=== PATIENT | female | born 1960 | race Caucasian/White ===

== ENCOUNTER 2022-09-08 12:42 | Emergency (ER) | payer BC, SELFPAY ==
--- NOTE | ~2022-09-08 | XR_ITS ---
EXAMINATION: XR hand LT min 3V DATE: 09/08/2022 13:03 INDICATION: Left hand pain. TECHNIQUE: 4 views of left hand were obtained. COMPARISON: None. FINDINGS: Bone alignment is normal. No fracture. There is mild osteoarthritis of first interphalangea l joint and first carpometacarpal joint. There are dystrophic calcifications palmar and radial to tri scaphe joint. IMPRESSION: 1. Mild polyarticular osteoarthritis. Reviewed, dictated and finalized at location A. D INCOME [employer] MA[employer]GER
[2022-09-08 13:20] VITALS: BP 146/75; PULSE 84; RESP 16; TEMP 37; O2SAT 97
--- NOTE | 2022-09-08 13:34 | ED.UPPEXIN ---
HPI - Extremity Injury (Upper) General Chief Complaint: Extremity Injury, Upper Stated Complaint: left hand injury Time Seen by Provider: 09/08/22 13:19 History of Present Illness HPI narrative: Patient is a 61-year-old female presenting with left wrist pain. 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 The next morning she woke up and she noticed some pain in her left wrist. Today she woke up and noticed that her left wrist looked swollen compared to her right wrist. She states that extending and flexing worsens the pain. She denies any trauma. She denies erythema or difficulty moving the joint. No fevers or chills. No numbness or weakness. No further complaints. Related Data Allergies Allergy/AdvReac Type Severity Reaction Status Date / Time Penicillins Allergy Intermediate Swelling Verified 02/17/19 08:46 Sulfa (Sulfonamide Allergy Intermediate Swelling Verified 02/17/19 08:46 Antibiotics) Review of Systems Review of Systems: All systems reviewed & are unremarkable except as noted in HPI and below Exam Narrative: GENERAL: Well-appearing, well-nourished, and in no acute distress. HEAD: Normocephalic, atraumatic. EYES: PERRLA and EOMI. ENT: Nares clear, no rhinorrhea or epistaxis. Mucous membranes moist. NECK: Supple. CHEST: Clear to auscultation. No respiratory distress. HEART: Regular rate and rhythm. No murmur heard. Normal peripheral pulses. ABDOMEN: Soft, nontender, nondistended, normal active bowel sounds. EXTREMITIES: Normal range of motion. edema involving lateral aspect of left wrist without overlying erythema or associated tenderness, 2+ radial pulses, brisk cap refill, research and evaluation analyst strength intact SKIN: Warm, dry, no rash. NEURO: No focal deficits. Alert and oriented x3. PSYCH: Normal mood and affect. Course Vital Signs Vital signs: Vital Signs Temperature 98.6 F 09/08/22 13:20 Pulse Rate 84 09/08/22 13:20 Respiratory Rate 16 09/08/22 13:20 Blood Pressure 146/75 H 09/08/22 13:20 Pulse Oximetry 97 09/08/22 13:20 Oxygen Delivery Room Air 09/08/22 13:20 Temperature 98.6 F 09/08/22 13:20 Pulse Rate 84 09/08/22 13:20 Respiratory Rate 16 09/08/22 14:39 Blood Pressure 146/75 H 09/08/22 13:20 Pulse Oximetry 97 09/08/22 13:20 Oxygen Delivery Room Air 09/08/22 13:20 MDM - Extremity Injury (Upper) MDM Narrative Medical decision making narrative: Patient is a 61-year-old female presenting with left wrist pain and mild swelling. Vitals within normal limits. Patient is well-appearing and in no acute distress. Exam is remarkable for the above. X-ray reveals polyarticular arthritis. Suspect that this is the cause of her pain. Advised that she use ibuprofen and Tylenol for pain control. She states that she has an appointment with orthopedics in a couple of weeks. Appropriate return precautions were given. Patient voiced understanding and is agreeable with plan. Discharged in stable condition. Critical Care Time Critical Care Time Critical Care Time: No Discharge Plan Discharge Clinical Impression: Left wrist pain, Osteoarthritis Patient Disposition: Home, Self-Care Condition: Stable Instructions: Antibiotic Form, Osteoarthritis (ED) Additional Instructions: Please follow-up with orthopedics as discussed. You may use up to 800 mg of ibuprofen 3 times a day for pain control. You may also supplement with Tylenol. If your symptoms suddenly worsen, you develop redness or fevers, or other concerning symptoms arise, please return to the ER. Follow-up/Referrals: PHYSICIAN NOT ON STAFF,NONSTAFF [Primary Care Provider] -
[2022-09-08 14:39] VITALS: RESP 16
== END 2022-09-08 14:39 | disposition home or self-care (01) ==
LOC: ANHED 14:37
PROVIDERS: Emergency Provider Emergency Medicine
DX: M19.032 Primary osteoarthritis, left wrist (principal)
CPT/HCPCS: 73130; 99283

== ENCOUNTER 2023-12-16 14:52 | Emergency (ER) | payer BC, SELFPAY ==
--- NOTE | ~2023-12-16 | CT_ITS ---
EXAMINATION: CT abdomen pelvis wo con DATE: 12/16/2023 15:46 INDICATION: R flank, RLQ pain, hx stones TECHNIQUE: Computed tomography (CT) of the abdomen and pelvis was performed without intravenous contr ast. Automated exposure control and iterative reconstruction technique were employed. The dose-length product was 615.71 mGy-cm. COMPARISON: 02/17/2019. FINDINGS: Lower thorax: Unremarkable Liver: Normal. Biliary/Gallbladder: Gallbladder is normal. No bile duct dilation. Pancreas: No mass or duct dilation. Spleen: Normal. Adrenals:No mass. Kidneys: Normal left kidney. Moderate right perinephric stranding. Severe pelviectasis and caliectasi s on the right. Moderate proximal ureterectasis. 5 x 9 mm calcification in the mid right ureter at th e level of the crossover with the iliac vessels. GI tract: Small hiatal hernia. No small or large bowel dilation. Status post appendectomy. Mesentery/Peritoneum: No ascites, mass, or free air. Retroperitoneum: No mass. Atherosclerotic abdominal aortic and/or arterial calcifications. Pelvis: Pelvic organs are within normal limits. Soft Tissues: Soft tissues and body wall unremarkable. Bones: No acute osseous finding. Moderate lumbar scoliosis. Multilevel severe degenerative disc dise ase. IMPRESSION: 5 x 9 mm distal ureteral stone causing moderate-severe obstructive uropathy. Reviewed, dictated and finalized at location K.
--- NOTE | ~2023-12-16 | XR_ITS ---
EXAM: XR abdomen/kub 1V DATE: 12/16/2023 20:20 HISTORY: URETEROLITHIASIS . COMPARISON: CT abdomen pelvis, same date. FINDINGS: Clear lung bases. Normal bowel gas pattern. No organomegaly. No abnormal abdominal calcifi cation. Regional bones and soft tissues normal for age. IMPRESSION: Known distal right ureteral calcification is not confidently visualized. Reviewed, dictated and finalized at location K. IMPRESSION: Known distal right ureteral calcification is not confidently visual ized.
[2023-12-16 15:13] VITALS: BP 137/76; PULSE 88; RESP 16; TEMP 37.6; O2SAT 100
--- NOTE | 2023-12-16 15:20 | ED.FEMALEGU ---
HPI - Female Genitourinary General Chief complaint: Urogenital-Female <NICA Machado Last Filed: 12/16/23 15:29> Stated complaint: right flank pain <NICA Machado Last Filed: 12/16/23 15:29> Time Seen by Provider: 12/16/23 15:21 <NICA Machado Last Filed: 12/16/23 15:29> Focused HPI: Patient is a 63 y/o female who presents to the ED with c/o R flank and abdominal pain. Patient has Hx of kidney stones, states it has been 10 years since her last stone up until recently. Thinks she has passed 3 in the past 3 weeks. Pain became much worse today which prompted her to come to the ED. C/o pain to R flank and RLQ. She took Advil this morning without improvement. Reports nausea with intermittent vomiting, subjective fevers, chills, urinary frequency, small void urines. Denies dysuria, hematuria. GENERAL: Mildly ill and uncomfortable appearing, actively vomiting in triage. HEAD: Normocephalic, atraumatic. CHEST: Clear to auscultation. ?No respiratory distress. HEART: Regular rate and rhythm.? ABD: TTP throughout R lower pelvic region, R CVA region. Normoactive BS. NEURO: ?Alert and oriented x3. Patient screened in triage and initial orders placed.? ?Additional care and disposition to be based upon?diagnostic testing and treatment. <NICA Machado Last Filed: 12/16/23 15:29> Source: patient <NICA Machado Last Filed: 12/16/23 15:29> Mode of arrival: ambulatory <NICA Machado Last Filed: 12/16/23 15:29> Limitations: no limitations <NICA Machado Last Filed: 12/16/23 15:29> Related Data Allergies/Adverse reactions: Allergies Allergy/AdvReac Type Severity Reaction Status Date / Time Penicillins Allergy Intermediate Swelling Verified 12/16/23 20:11 Sulfa (Sulfonamide Allergy Intermediate Swelling Verified 12/16/23 20:11 Antibiotics) <Lilian Sethi PA-C - Last Filed: 12/16/23 15:29> Review of Systems Review of Systems: CONSTITUTIONAL: Denies fever GASTROINTESTINAL: Reports abdominal pain, nausea, vomiting. Denies diarrhea. GENITOURINARY: Denies dysuria or hematuria. <Angela Verdugo PA-C - Last Filed: 12/16/23 21:06> All systems reviewed & are unremarkable except as noted in HPI and below <Angela Verdugo PA-C - Last Filed: 12/16/23 21:06> PMFSH Past Medical History Medical History: Medical History (Updated 12/16/23 @ 20:53 by Angela Verdugo PA-C) History of hyperlipidemia <Lilian Sethi PA-C - Last Filed: 12/16/23 15:29> Social History Social History: Social History (Updated 12/16/23 @ 18:35 by Angela Verdugo PA-C) Smoking status: Never smoker <Lliian Sethi PA-C - Last Filed: 12/16/23 15:29> Exam Narrative: GENERAL: Well-appearing, well-nourished, and in no acute distress. HEAD: Normocephalic, atraumatic. EYES: EOMI. CHEST: Clear to auscultation. No respiratory distress. No wheezes rales or rhonchi HEART: Regular rate and rhythm. No murmur heard. Normal peripheral pulses. ABDOMEN: Soft, nondistended, normal active bowel sounds. Mild tenderness to palpation in the right lower quadrant, without guarding EXTREMITIES: Normal range of motion. No edema. SKIN: Warm, dry, no rash. NEURO: No focal deficits. Alert and oriented x3. PSYCH: Normal mood and affect <Angela Verdugo PA-C - Last Filed: 12/16/23 21:06> Course Course Emergency Course: Patient updated on her workup. Would prefer to follow up outpatient <Angela Verdugo PA-C - Last Filed: 12/16/23 21:06> Consultations Consultation #1: Spoke with Dr. Linda about patient and workup. Patient will be started on oral antibiotics. She may follow up in clinic as is her preference. He is okay with a dose of Toradol <Angela Verdugo PA-C - Last Filed: 12/16/23 21:06> Date: 12/16/23 <Angela Verdugo PA-C - Last Filed: 12/16/23 21:06> Vital Signs Vi
[2023-12-16] MEDS: ACETAMINOPHEN 500 MG TABLET 1000 MG PO (15:32)
[2023-12-16] MEDS: ONDANSETRON INJ 4 MG/2 ML VIAL IV PUSH (15:32)
[2023-12-16 15:34] LABS: Basophils Percent Auto 0.2 % (0.2-1.2); Eosinophils Absolute Auto 0.1 K/mm3 (0-0.3); Eosinophils Percent Auto 0.5 % (0-4.4); Hematocrit 37.6 % (37.0-47.0); Hemoglobin 12.2 g/dL (12.0-15.0); Immature Granulocyte Absolute 0.05 K/mm3 (0.00-0.031); Immature Granulocyte Percent A 0.4 % (0-0.5); Lymphocytes Absolute Auto 0.88 K/mm3 (0.9-3.2); Lymphocytes Percent Auto 6.7 % (18.3-44.2); Mean Corpuscular HGB Conc 32.4 g/dl (32-36); Mean Corpuscular Volume 92.6 fl (80-100); Mean Platelet Volume 8.3 fl (7.4-10.4); Monocytes Absolute Auto 0.7 K/mm3 (0.1-0.6); Monocytes Percent Auto 5.6 % (2.6-8.5); Neutrophils Absolute Auto 11.4 K/mm3 (1.3-6.7); Neutrophils Percent Auto 86.6 % (45.5-73.1); Platelet Count Result 352 k/mm3 (150-375); Red Blood Count 4.06 M/mm3 (4.2-5.4); Red Cell Distribution Width 12.6 % (11.5-14.5); White Blood Count 13.2 K/mm3 (4.5-10.0)
[2023-12-16 15:46] LABS: Alanine Aminotransferase 22 U/L (6-35); Albumin Level 4.5 g/dL (3.5-5.1); Alkaline Phosphatase 96 U/L (38-126); Anion Gap 8 mmol/L (4-12); Aspartate Amino Transferase 29 U/L (14-36); Bilirubin,Total 0.7 mg/dL (0.2-1.3); Blood Urea Nitrogen 20 mg/dL (7-17); Calcium 9.5 mg/dL (8.4-10.2); Carbon Dioxide 23 mmol/L (22-30); Chloride 104 mmol/L (98-107); Estimated CRCL calculation 47 ml/min; Estimated Glomerular Filt Rate 50; Glucose 113 mg/dL (65-110); Lipase 43 U/L (23-300); Potassium 4.6 mmol/L (3.4-5.0); Sodium 135 mmol/L (137-145)
[2023-12-16] MEDS: SODIUM CHLORIDE 0.9% IV 1,000 ML 999 ML IV CONT (18:27)
[2023-12-16 18:47] LABS: Appearance Urine Turbid (Clear); Bacteria Urine Rare /hpf; Bilirubin Urine Negative (Negative); Blood Urine 2+ (Negative); Color Urine Yellow (Yellow); Glucose Urine UA Negative (Negative); Ketones Urine Trace mg/dL (Negative); Leukocyte Esterase Ur 3+ LEU/UL (Negative); Nitrate Urine Negative (Negative); Protein Urine 2+ mg/dL (Negative); Specific Grav Ur 1.022 (1.001-1.035); Squamous Epithelial Cell Urine None Seen /hpf (Few); Urobilinogen Urine 0.2 mg/dL (<2.0); WBC Urine >100 /hpf (0-3)
[2023-12-16 18:56] LABS: Add Urine Microscopic? YES
[2023-12-16 20:02] VITALS: BP 154/77; PULSE 93; RESP 16; O2SAT 98
[2023-12-16] MEDS: KETOROLAC 15 MG/ML VIAL (*BKC) IV PUSH (20:24)
[2023-12-16 20:33] LABS: Lactic Acid Reflex 1.4 mmol/L (0.7-2.0)
[2023-12-16 21:30] VITALS: BP 133/81; PULSE 93; RESP 20; O2SAT 97
== END 2023-12-16 21:30 | disposition home or self-care (01) ==
PROVIDERS: Physician Assistant; Emergency Provider Physician Assistant; PCP Family Medicine
DX: N13.9 Obstructive and reflux uropathy, unspecified (principal); N20.1 Calculus of ureter; R82.81 Pyuria; E78.5 Hyperlipidemia, unspecified; Z87.442 Personal history of urinary calculi
CPT/HCPCS: 36415; 74018; 74176; 80053; 81001; 83605; 83690; 85025; 87077; 87086; 87088; 87186; 96361; 96365; 96375; 99284; A9270; J0696; J1885; J2405; J7030

== ENCOUNTER 2023-12-19 14:50 | Observation (INO) | payer BC, SELFPAY ==
[2023-12-18] VITALS (13 sets, daily range): BP systolic 117–140; BP diastolic 51–71; PULSE 53–82; RESP 12–24; TEMP 36.2–37.5; O2SAT 93–100; BMI 31.4
--- NOTE | 2023-12-18 10:32 | PC.NURSE ---
Report to the Outpatient Waiting Room, entrance under the green pavilion located off [facility], at time _1200_ on date _[id number]_. Planned Procedure Time: _2pm_. Time changes happen often and if your time is changed the preop area will call you the afternoon before. - You and your visitor will be asked to self-screen and do not enter if you have any COVID symptoms. - A mask is optional within the hospital at this time. Patients may have clear liquids (water, carbonated beverages, clear teas, apple juice) until 3 hours prior to surgery with a maximum of 20 ounces. - No food from midnight until time of surgery Take the following medications with a SIP of water the morning of surgery: antibiotic and if needed pain pill. DO NOT STOP ANY OF YOUR OTHER PRESCRIPTION MEDICATIONS PRIOR TO SURGERY ?EXCEPT THE FOLLOWING Medications to discontinue per physician Date to take last dose Please no make-up, nail vietnamese, hairspray, perfume, deodorant, or body powder the day of surgery. No jewelry (including any body piercings) or valuables the day of surgery, leave them at home. Please take a shower or bath the night before, or the morning of, surgery with an antibacterial soap. Wear comfortable, loose fitting clothing. - Jewelry must be removed prior to entering the operating room. Rings and piercings that are not removed may be cut off. - The hospital will not accept responsibility for valuables. - Please leave all valuables, including medications, at home the day of surgery. If you are going home after surgery, a licensed boat driver must drive you home. - NO public transportation without another adult if you receive anesthesia. - We recommend that an adult stay with you for 24 hours following discharge. - We also recommend that you do not drive, make important decision, drink alcoholic beverages, or take any drugs that were not prescribed by your health care provider for at least 24 hours after your discharge time. Follow any additional instructions given to you from your surgeon. If you or anyone in your household have experienced Covid symptoms in the past week, please notify your surgeon or the nurse liaison at the phone number below for possible testing. Telephone instructions given to __Trippky___and asked if any additional questions and then verbalized understanding. Patient advised to call surgeon office or pre surgery nurse liaison [phone] if any additional questions.
--- NOTE | 2023-12-18 12:46 | ECG_ITS ---
SEE SCANNED COPY FOR CONFIRMED REPORT. MTDD
[2023-12-18] MEDS: ONDANSETRON INJ 4 MG/2 ML VIAL IV PUSH ×2 (12:49→17:44)
[2023-12-18] MEDS: LACTATED RINGERS 1,000 ML 30 ML IV CONT ×2 (12:50→14:30)
--- NOTE | 2023-12-18 13:07 | P.PNAN_ITS ---
Anes - Initial Pre Proc Eval Procedure: Operation Date: 12/18/23 14:00 Proposed Procedures p Cystoscopy, Right Retrograde Pyelogram, Right Ureteral Stent Placement - Robby Linda MD Date/Time: 12/18/23 13:07 Surgeon: Robby Linda MD Pre Op Diagnosis: Right Kidney Stone Patient Data Age: 63 Gender: F Height: 1.63 m Weight: 84.3 kg Last Vital Signs Temp 37.5 C 12/18/23 12:52 Pulse 82 12/18/23 12:52 Resp 18 12/18/23 12:52 BP 119/51 L 12/18/23 12:52 Pulse Ox 97 12/18/23 12:52 O2 Del Method Room Air 12/18/23 12:52 Allergies Allergy/AdvReac Type Severity Reaction Status Date / Time Penicillins Allergy Intermediate Swelling Verified 12/18/23 12:36 Sulfa (Sulfonamide Allergy Intermediate Swelling Verified 12/18/23 12:36 Antibiotics) Home Medications Medication Instructions Recorded Confirmed Type cefdinir 300 mg capsule 300 mg PO Q12H 1 week #14 caps 12/16/23 12/18/23 Rx hydrocodone 5 mg-acetaminophen 325 1 tablet PO Q8H PRN pain #14 tabs 12/16/23 12/18/23 Rx mg tablet tamsulosin 0.4 mg capsule 0.4 mg PO DAILY 1 week #7 caps 12/16/23 12/18/23 Rx aspirin 81 mg capsule 81 mg PO DAILY 12/18/23 12/18/23 History atorvastatin 20 mg tablet 20 mg PO HS 12/18/23 12/18/23 History multivitamin 1 tablet PO DAILY 12/18/23 12/18/23 History omega-3 fatty acids 1,000 mg PO DAILY 12/18/23 12/18/23 History turmeric 400 mg capsule 400 mg PO DAILY 12/18/23 12/18/23 History Patient hx anesthesia problems: none Family hx anesthesia problems: none Results Review: All pre-operative results and documents have been reviewed as part of the pre- operative evaluation. [facility] Past Medical History Medical History (Updated 12/18/23 @ 13:07 by Slava Boss MD) History of hyperlipidemia Obesity Surgical History Surgical History (Updated 12/18/23 @ 13:10 by Slava Boss MD) History of appendectomy Social History Social History Smoking status: Never smoker Alcohol intake: current Living arrangements: with family Spiritual care concerns: No Anes - Eval Final PreProcedure Day of Procedure 12/18/23 13:07 Patient weight: obese Heart: regular rate and rhythm Lungs: clear to auscultation Airway: Mallampati scale class II Neurological: alert and oriented Last oral intake: >/= 8 hours ASA classification: II Emergent: no Anesthetic plan: proceed Anesthesia type and monitoring: general LMA and standard monitoring Results Review: All pre-operative results and documents have been reviewed as part of the pre- operative evaluation. Informed Consent: The patient's anesthetic plan and its attendant risks and benefits were discussed with the patient/family/POA. Questions were solicited and answers provided to the satisfaction of the patient/family/POA.
--- NOTE | 2023-12-18 13:16 | PM.IMHP ---
H&P: HPI History of Present Illness Date/Time: 12/18/23 13:16 Chief Complaint: obstructing 9 mm right mid ureteral stone with uti Narrative: 63 year old female with 9 mm right ureteral stone with uti. Has been on abx but continues to have discomfort. Review of Systems Review of Systems: All systems reviewed & are unremarkable except as noted in HPI and below PMFSH Past Medical History Medical History History of hyperlipidemia Obesity Surgical History Surgical History History of appendectomy Social History Social History Smoking status: Never smoker Alcohol intake: current Living arrangements: with family Spiritual care concerns: No Meds Home Medications and Allergies Home Medications Medication Instructions Recorded Confirmed Type cefdinir 300 mg capsule 300 mg PO Q12H 1 week #14 caps 12/16/23 12/18/23 Rx hydrocodone 5 mg-acetaminophen 325 1 tablet PO Q8H PRN pain #14 tabs 12/16/23 12/18/23 Rx mg tablet tamsulosin 0.4 mg capsule 0.4 mg PO DAILY 1 week #7 caps 12/16/23 12/18/23 Rx aspirin 81 mg capsule 81 mg PO DAILY 12/18/23 12/18/23 History atorvastatin 20 mg tablet 20 mg PO HS 12/18/23 12/18/23 History multivitamin 1 tablet PO DAILY 12/18/23 12/18/23 History omega-3 fatty acids 1,000 mg PO DAILY 12/18/23 12/18/23 History turmeric 400 mg capsule 400 mg PO DAILY 12/18/23 12/18/23 History Allergies Allergy/AdvReac Type Severity Reaction Status Date / Time Penicillins Allergy Intermediate Swelling Verified 12/18/23 12:36 Sulfa (Sulfonamide Allergy Intermediate Swelling Verified 12/18/23 12:36 Antibiotics) Vital Signs Vital Signs - 24 hr 12/18/23 12:52 Temperature 37.5 C Pulse Rate 82 Respiratory Rate 18 Blood Pressure 119/51 L Pulse Oximetry 97 Oxygen Delivery Room Air Exam Const: General: cooperative Resp: Effort & Inspection: normal respiratory effort Cardio: Rate: regular rate Rhythm: regular rhythm GI: Inspection: normal to inspection Assessment and Plan Assessment and plan (1) Right ureteral calculus: Code(s): N20.1 - Calculus of ureter Status: Acute Assessment and Plan: Proceed with cystoscopy, right retrograde, right ureteral stent placement.
--- NOTE | 2023-12-18 13:19 | WPDHPUPDATE1 ---
History and Physical Update Update Date/Time: 12/18/23 13:19 History and Physical has been reviewed, including an updated exam of the patient. There are NO changes in the patient's condition. Risks, benefits, and alternatives have been discussed and questions answered. Patient agrees to proceed with procedure.
[2023-12-18] MEDS: ceFAZolin 2 GM/D5W 50 ML 2 GM/50 ML BAG IVPB (13:44)
[2023-12-18] MEDS: KETOROLAC 15 MG/ML VIAL (*BKC) IV PUSH (14:22)
--- NOTE | 2023-12-18 14:26 | P.OP_ITS ---
Procedure Note - Detailed Date of Procedure 12/18/23 Pre-op Diagnosis Obstructing right ureteral stone with UTI Post-op Diagnosis Same Procedure Performed Cystoscopy, right retrograde pyelogram, right ureteroscopy, right ureteral stent placement, Nur catheter placement Surgeon Robby Linda MD Anesthesia General Findings Obstructing 9 mm stone with false passage Description of Procedure Patient was taken to the operative suite correctly identified. Once anesthesia was obtained she was placed in a dorsal lithotomy position and prepped and draped usual sterile fashion. Twenty-two Upper Sorbian scope inserted in the bladder. Ureteral catheter was inserted pyelogram was performed. There appeared to be contrast going proximal ureter. At this point a Sensor wire was felt to be manipulated past the stone. It then curled in the more proximal ureter. I then used an angled Glidewire trying to advance the wire. It again curled. A flexible ureteral scope would not be in inserted into the orifice. I placed a ureteral access sheath in. Mini flexible ureteral scope was then inserted. It was following the guidewire. It did not have the normal appearance of the ureter. It almost appeared as if the false passage although it almost appeared lumen is in appearance. There was no mention of a duplicated system. At this point I pulled the scope back to the location of the stone which I was unable to manipulate past. This found its way into the correct proximal or upper pole ureter. A Sensor wire was placed. Six Upper Sorbian contour stent was then placed with the proximal end coiled in the renal pelvis and the distal in bladder. Sixteen Upper Sorbian Nur was inserted. 2% viscous lidocaine had been placed the bladder. Patient was taken recovery stable condition. She will be admitted for observation. Will need to let this area heal for minimum of 2-3 weeks time and then plan a ureteroscopy at that time. This completes dictation. Please send a copy of op note to my office Estimated Blood Loss 0 Drains Yes Packing No Pathology None sent Complications No immediate complications Condition Stable Disposition PACU
--- NOTE | 2023-12-18 16:04 | ADMGEN ---
This patient, Elma Solis, was admitted to -. Patient/family oriented to hospital policies and general routines including ID bracelet, bed and alarms, visiting hours, pain management, procedures, bathroom and other care routines, personal items, smoking policy, room service/diet, and visiting hours. Information on how to activate the Rapid Response Team has been discussed. Patient/Family are encouraged to report perceived risks to care and to ask questions if they do not understand what they are told or what they should do.
[2023-12-18] MEDS: DEXTROSE 5%/LACTATED RINGERS 1,000 ML 150 ML IV CONT ×2 (16:23→22:50)
--- NOTE | 2023-12-18 19:03 | PC.NURSE ---
Patient states she is too nauseous for 6pm keflex. left at bedside and reported to night rn.
[2023-12-18] MEDS: ceFAZolin 1 GM/NS 50 ML 1 GM/50 ML BAG IVPB (20:19)
[2023-12-19] VITALS (8 sets, daily range): BP systolic 118–146; BP diastolic 59–69; PULSE 59–70; RESP 16–26; TEMP 36.4–36.7; O2SAT 94–98
--- NOTE | ~2023-12-19 | XR_ITS ---
XR chest 1V portable 12/20/2023 14:00 Indication: Chest pain Procedure: 2 view chest Comparison: No prior studies for comparison. Findings: Retrocardiac opacification. Heart size normal. Possible small effusion. No pneumothorax or edema. No acute osseous abnormality. Impression: 1: Retrocardiac opacification may represent atelectasis or pneumonia. Reviewed, dictated and finalized at location B. Impression: 1: Retrocardiac opacification may represent atelectasis or pneumonia.
--- NOTE | ~2023-12-19 | XR_ITS ---
EXAMINATION: XR retrograde pyelo w/stent RT DATE: 12/18/2023 14:30 INDICATION: Right ureteral stone. TECHNIQUE: 21 intraoperative fluoroscopic views of the abdomen and pelvis were obtained. I was not pr esent. Fluoroscopy exposure time was 93 seconds. COMPARISON: CT abdomen and pelvis 12/16/2023 FINDINGS: There is a stone in the distal right ureter. A right-sided retrograde pyelogram demonstrate s hydronephrosis and hydroureter. Images demonstrate extraluminal advancement of a wire and catheter in the area of the stone with extraluminal contrast injection. Additional images demonstrate repositi oning of a wire and catheter in the right ureter. The final images demonstrate a right internal urete ral stent in expected position. IMPRESSION: 1. Stone in the distal right ureter with right hydronephrosis and proximal hydroureter. 2. Perforation of the right ureter in the area of the stone with temporary extraluminal positioning o f the catheter. 3. Right internal ureteral stent in expected position at the conclusion of the procedure. Reviewed, dictated and finalized at location A. IMPRESSION: 1. Stone in the distal right ureter with right hydronephrosis and proximal hydr oureter. 2. Perforation of the right ureter in the area of the stone with temporary extr aluminal positioning of the catheter. 3. Right internal ureteral stent in expected position at the conclusion of the procedure.
[2023-12-19] MEDS: ONDANSETRON INJ 4 MG/2 ML VIAL IV PUSH ×3 (00:06→15:30)
[2023-12-19] MEDS: HYDROmorphone HCL INJ (*CRX) 1 MG/ML SYR 0.5 MG IV PUSH (00:06)
[2023-12-19] MEDS: CEPHALEXIN 500 MG CAPSULE PO ×2 (00:06→05:14)
[2023-12-19 04:55] LABS: Basophils Percent Auto 0.1 % (0.2-1.2); Hematocrit 33.3 % (37.0-47.0); Hemoglobin 10.5 g/dL (12.0-15.0); Immature Granulocyte Absolute 0.06 K/mm3 (0.00-0.031); Immature Granulocyte Percent A 0.4 % (0-0.5); Lymphocytes Absolute Auto 0.87 K/mm3 (0.9-3.2); Lymphocytes Percent Auto 6.1 % (18.3-44.2); Mean Corpuscular HGB Conc 31.5 g/dl (32-36); Mean Corpuscular Hemoglobin 29.7 pg (26-34); Mean Corpuscular Volume 94.3 fl (80-100); Mean Platelet Volume 8.8 fl (7.4-10.4); Monocytes Absolute Auto 0.4 K/mm3 (0.1-0.6); Monocytes Percent Auto 2.7 % (2.6-8.5); Neutrophils Absolute Auto 12.9 K/mm3 (1.3-6.7); Neutrophils Percent Auto 90.7 % (45.5-73.1); Platelet Count Result 250 k/mm3 (150-375); Red Blood Count 3.53 M/mm3 (4.2-5.4); Red Cell Distribution Width 12.5 % (11.5-14.5); White Blood Count 14.2 K/mm3 (4.5-10.0)
[2023-12-19 05:04] LABS: Anion Gap 6 mmol/L (4-12); Blood Urea Nitrogen 17 mg/dL (7-17); Calcium 8.8 mg/dL (8.4-10.2); Carbon Dioxide 23 mmol/L (22-30); Chloride 107 mmol/L (98-107); Estimated CRCL calculation 64 ml/min; Estimated Glomerular Filt Rate > 60; Glucose 243 mg/dL (65-110); Potassium 4.4 mmol/L (3.4-5.0); Sodium 136 mmol/L (137-145)
[2023-12-19] MEDS: ceFAZolin 1 GM/NS 50 ML 1 GM/50 ML BAG IVPB (05:13)
[2023-12-19] MEDS: DEXTROSE 5%/LACTATED RINGERS 1,000 ML 150 ML IV CONT ×3 (05:13→20:13)
[2023-12-19 05:27] LABS: Anisocytosis 1+; Burr Cells 2+; Platelet Estimate Adequate (Adequate); Schistocytes None Seen
--- NOTE | 2023-12-19 08:19 | WPDUROPN2 ---
Progress Note: A&P Assessment and Plan (1) Right ureteral calculus: Code(s): N20.1 - Calculus of ureter Status: Acute Assessment and Plan: status post stent placement. There was false passage with placement of the guidewire. Will require stent placement for 3-4 weeks prior to intervention for the stone. (2) UTI (urinary tract infection): Code(s): N39.0 - Urinary tract infection, site not specified Status: Acute Assessment and Plan: Proteus sensitive to Levaquin. Will adjust antibiotics. Still feels somewhat lethargic. Will increase activity and remove Nur this morning. Will re-evaluate this afternoon Subjective Subjective Date/Time Seen: 12/19/23 08:19 Post Op day: 1 ( cysto, right retrograde, right stent placement and ureteroscopy) Principal diagnosis: obstructing right ureteral stone with UTI Interval history: afebrile but still feels weak. Urine culture has grown out Proteus. Will switch to Levaquin. Remove Nur and increase ambulation. Milena states that she was worked up for some chest pain a couple weeks ago with a stress test by her primary care physician Dr. Miller. Will get in touch with him for results to see if we need to do anything while inpatient. Review of Systems Review of Systems: All systems reviewed & are unremarkable except as noted in HPI and below Exam Const: General: cooperative and other ( Feels weak) Resp: Effort & Inspection: normal respiratory effort Cardio: Rate: regular rate Rhythm: regular rhythm Urinary Catheter: Urinary Catheter: patent and draining and urine clear Objective Data Vital Signs Vital Signs: Vital Signs - 24 hr 12/18/23 12:52 12/18/23 14:30 12/18/23 14:45 Temperature 37.5 C 36.2 C L Pulse Rate 82 67 65 Respiratory Rate 18 17 18 Blood Pressure 119/51 L 125/61 127/71 Pulse Oximetry 97 100 100 Oxygen Delivery Room Air Simple Face Mask Simple Face Mask Oxygen Flow Rate 8 8 12/18/23 15:00 12/18/23 15:15 12/18/23 15:30 Temperature Pulse Rate 75 65 64 Respiratory Rate 24 H 18 18 Blood Pressure 140/71 120/64 118/58 L Pulse Oximetry 100 94 93 Oxygen Delivery Room Air Room Air Oxygen Flow Rate 12/18/23 15:45 12/18/23 16:01 12/18/23 16:15 Temperature 36.6 C 36.5 C Pulse Rate 69 67 65 Respiratory Rate 24 H 20 21 H Blood Pressure 117/65 139/63 135/57 L Pulse Oximetry 94 93 95 Oxygen Delivery Room Air Oxygen Flow Rate 12/18/23 16:30 12/18/23 18:31 12/18/23 20:00 Temperature 36.3 C L 36.6 C Pulse Rate 63 59 L 59 L Respiratory Rate 12 21 H 21 H Blood Pressure 133/54 L 129/59 L Pulse Oximetry 94 94 94 Oxygen Delivery Room Air Oxygen Flow Rate 12/18/23 21:30 12/19/23 01:30 12/19/23 05:29 Temperature 36.4 C L 36.4 C 36.4 C L Pulse Rate 53 L 59 L 59 L Respiratory Rate 17 17 17 Blood Pressure 126/58 L 122/59 L 118/63 Pulse Oximetry 95 94 94 Oxygen Delivery Oxygen Flow Rate Intake/Output Intake/Output: Intake & Output 12/16/23 12/17/23 12/18/23 12/19/23 23:59 23:59 23:59 23:59 Intake Total 1750 1000 Output Total 40 750 Balance 1710 250 Meds/Results Medications: Active Medications Generic Name Dose Route Start Last Admin Trade Name Freq PRN Reason Stop Dose Admin Hydrocodone Bitart/Acetaminophen 1 tab 12/19/23 05:00 Hydrocodone/Acetaminophen (*Crx) 5-325 Mg Tablet PO Q4H PRN Pain Rated 1-3 Hydrocodone Bitart/Acetaminophen 2 tab 12/19/23 05:00 Hydrocodone/Acetaminophen (*Crx) 5-325 Mg Tablet PO Q4H PRN Pain Rated 4-6 Atorvastatin Calcium 20 mg 12/18/23 21:00 12/18/23 20:20 Atorvastatin 20 Mg Tablet PO Not Given HS PRINCESS Hydromorphone HCl 0.5 mg 12/18/23 15:46 12/19/23 00:06 Hydromorphone Hcl Inj (*Crx) 1 Mg/Ml Syr IV PUSH 0.5 mg Q4H PRN Administration Pain Rated 7-10 Dextrose/Lactated Ringer's 1,000 mls @ 150 mls/hr 12/18/23 15:46 12/19/23 05:13 Dextrose 5%/Lactated Ringers IV
[2023-12-19] MEDS: levoFLOXacin 500 MG/D5W 100 ML 500 MG/100 ML BAG 100 MG IVPB (09:02)
--- NOTE | 2023-12-19 11:54 | P.PNAN_ITS ---
Anes - Prog Note Post-Op Date/Time: 12/19/23 11:54 Cardiovascular status: normal Respiratory status: normal Airway patency: baseline Mental status: baseline Post-Op hydration status: normal Vital Signs: Last Vital Signs Temp 36.6 C 12/19/23 09:31 Pulse 60 12/19/23 09:31 Resp 16 12/19/23 09:31 BP 130/66 12/19/23 09:31 Pulse Ox 98 12/19/23 09:31 O2 Del Method Room Air 12/19/23 09:01 O2 Flow Rate 8 12/18/23 14:45 Pain Score (VAS): 0 I/O: Intake & Output 12/18/23 12/19/23 12/19/23 23:59 07:59 15:59 Intake Total 1050 1000 721.7 Output Total 750 900 Balance 1050 250 -178.3 Laboratory Tests 12/19/23 04:39 12/19/23 04:39 12/19/23 04:39 WBC 14.2 H RBC 3.53 L Hgb 10.5 L Hct 33.3 L MCV 94.3 MCH 29.7 MCHC 31.5 L RDW 12.5 Plt Count 250 MPV 8.8 Immature Gran % (Auto) 0.4 Neut % (Auto) 90.7 H Lymph % (Auto) 6.1 L [place] % (Auto) 2.7 Eos % (Auto) 0.0 Baso % (Auto) 0.1 L Lymph # (Auto) 0.87 L [place] # (Auto) 0.4 Eos # (Auto) 0.0 Baso # (Auto) 0.0 Abs Immat Gran (auto) 0.06 H Absolute Neuts (auto) 12.9 H Absolute Nucleated RBC 0.000 Nucleated RBC % 0.0 Platelet Estimate Adequate Anisocytosis 1+ [place] Cells 2+ Schistocytes None seen Sodium 136 L Potassium 4.4 Chloride 107 Carbon Dioxide 23 Anion Gap 6 BUN 17 Creatinine 0.80 Estim Creat Clear Calc 64 Estimated GFR > 60 Glucose 243 H Calcium 8.8 Post-procedural complaints: none Patient Feedback: Patient satisfied with anesthetic care.
[2023-12-19] MEDS: PROCHLORPERAZINE EDISYLATE 10 MG/2 ML VIAL IV PUSH (18:25)
[2023-12-19] MEDS: ATORVASTATIN 20 MG TABLET PO (20:13)
[2023-12-20] VITALS (9 sets, daily range): BP systolic 127–142; BP diastolic 64–75; PULSE 70–82; RESP 16–18; TEMP 36.4–37.1; O2SAT 92–96
[2023-12-20] MEDS: HYDROcodone/acetaminophen (*CRX) 5-325 MG TABLET 1 TAB PO ×3 (02:07→14:24)
[2023-12-20] MEDS: DEXTROSE 5%/LACTATED RINGERS 1,000 ML 150 ML IV CONT ×2 (02:57→10:00)
[2023-12-20 05:05] LABS: Basophils Percent Auto 0.1 % (0.2-1.2); Eosinophils Absolute Auto 0.1 K/mm3 (0-0.3); Eosinophils Percent Auto 0.6 % (0-4.4); Hematocrit 30.5 % (37.0-47.0); Hemoglobin 9.7 g/dL (12.0-15.0); Immature Granulocyte Percent A 0.6 % (0-0.5); Lymphocytes Absolute Auto 1.82 K/mm3 (0.9-3.2); Lymphocytes Percent Auto 11.7 % (18.3-44.2); Mean Corpuscular HGB Conc 31.8 g/dl (32-36); Mean Corpuscular Hemoglobin 29.4 pg (26-34); Mean Corpuscular Volume 92.4 fl (80-100); Mean Platelet Volume 8.8 fl (7.4-10.4); Monocytes Absolute Auto 0.9 K/mm3 (0.1-0.6); Monocytes Percent Auto 5.8 % (2.6-8.5); Neutrophils Absolute Auto 12.6 K/mm3 (1.3-6.7); Neutrophils Percent Auto 81.2 % (45.5-73.1); Platelet Count Result 282 k/mm3 (150-375); Red Cell Distribution Width 12.4 % (11.5-14.5); White Blood Count 15.6 K/mm3 (4.5-10.0)
[2023-12-20 05:13] LABS: Anion Gap 4 mmol/L (4-12); Blood Urea Nitrogen 14 mg/dL (7-17); Calcium 8.5 mg/dL (8.4-10.2); Carbon Dioxide 25 mmol/L (22-30); Chloride 112 mmol/L (98-107); Estimated CRCL calculation 73 ml/min; Estimated Glomerular Filt Rate > 60; Glucose 129 mg/dL (65-110); Potassium 3.5 mmol/L (3.4-5.0); Sodium 141 mmol/L (137-145)
--- NOTE | 2023-12-20 07:26 | ECG_ITS ---
SEE SCANNED COPY FOR CONFIRMED REPORT MTDD
--- NOTE | 2023-12-20 07:32 | PC.NURSE ---
Patient complaining of chest pain that has been happening all throughout the night. Patient states she is nauseous and appears diaphoretic. Per Dr. Linda, order EKG, troponin, and consult to hospitalist.
[2023-12-20 07:56] LABS: Troponin I < 0.012 ng/mL (0.000-0.034)
[2023-12-20] MEDS: levoFLOXacin 500 MG/D5W 100 ML 500 MG/100 ML BAG 100 MG IVPB (09:03)
--- NOTE | 2023-12-20 12:59 | WPDUROPN2 ---
Progress Note: A&P Assessment and Plan (1) Right ureteral calculus: Code(s): N20.1 - Calculus of ureter Status: Acute Assessment and Plan: Will address in 4-5 weeks with repeat ureteroscopy with laser of stone (2) UTI (urinary tract infection): Code(s): N39.0 - Urinary tract infection, site not specified Status: Acute Assessment and Plan: Proteus UTI sensitive to the Levaquin. Her urine culture obtained in my office prior to her surgery showed no growth. (3) Chest pain: Code(s): R07.9 - Chest pain, unspecified Status: Acute Assessment and Plan: Troponins negative on 1st batch. Hospitalist to evaluate Subjective Subjective Date/Time Seen: 12/20/23 12:59 Post Op day: 2 (Cysto left retrograde left ureteroscopy left stent placement) Principal diagnosis: Obstructing left ureteral calculus with UTI Interval history: Milena was complaining of some chest pain last night. She has had troponins drawn this morning which were normal. EKG per report is negative also. She has had a recent stress test per the patient which was negative. Hospitalist is still due to see the patient. She again is not very active. Her white count was slightly elevated at 15 today. Afebrile. Review of Systems Review of Systems: All systems reviewed & are unremarkable except as noted in HPI and below Exam Const: General: cooperative Resp: Effort & Inspection: normal respiratory effort Cardio: Rate: regular rate Rhythm: regular rhythm Objective Data Vital Signs Vital Signs: Vital Signs - 24 hr 12/19/23 14:00 12/19/23 18:00 12/19/23 20:25 Temperature 36.7 C 36.7 C Pulse Rate 65 70 70 Respiratory Rate 21 H 18 18 Blood Pressure 146/69 H 143/67 H Pulse Oximetry 98 95 95 Oxygen Delivery Room Air 12/19/23 21:06 12/20/23 02:00 12/20/23 06:00 Temperature 36.4 C 36.4 C L 36.5 C Pulse Rate 63 75 73 Respiratory Rate 26 H 18 18 Blood Pressure 128/60 134/70 127/64 Pulse Oximetry 95 93 94 Oxygen Delivery 12/20/23 09:01 12/20/23 10:00 Temperature 37.1 C Pulse Rate 74 75 Respiratory Rate 16 18 Blood Pressure 139/69 142/64 H Pulse Oximetry 92 95 Oxygen Delivery Intake/Output Intake/Output: Intake & Output 12/17/23 12/18/23 12/19/23 12/20/23 23:59 23:59 23:59 23:59 Intake Total 1750 3220.0 2222 Output Total 40 2350 100 Balance 1710 870.0 2122 Meds/Results Medications: Active Medications Generic Name Dose Route Start Last Admin Trade Name Freq PRN Reason Stop Dose Admin Hydrocodone Bitart/Acetaminophen 1 tab 12/19/23 05:00 12/20/23 09:03 Hydrocodone/Acetaminophen (*Crx) 5-325 Mg Tablet PO 1 tab Q4H PRN Administration Pain Rated 1-3 Hydrocodone Bitart/Acetaminophen 2 tab 12/19/23 05:00 Hydrocodone/Acetaminophen (*Crx) 5-325 Mg Tablet PO Q4H PRN Pain Rated 4-6 Atorvastatin Calcium 20 mg 12/18/23 21:00 12/19/23 20:13 Atorvastatin 20 Mg Tablet PO 20 mg HS PRINCESS Administration Hydromorphone HCl 0.5 mg 12/18/23 15:46 12/19/23 00:06 Hydromorphone Hcl Inj (*Crx) 1 Mg/Ml Syr IV PUSH 0.5 mg Q4H PRN Administration Pain Rated 7-10 Levofloxacin/Dextrose 500 mg in 100 mls @ 100 mls/hr 12/19/23 09:00 12/20/23 09:03 Levaquin 500 Mg/D5w 100 Ml IVPB 100 mls/hr Q24H PRINCESS Administration Naloxone HCl 0.1 mg 12/18/23 15:46 Naloxone Hcl 0.4 Mg/Ml Vial IV PUSH Q2M PRN Opiate Reversal Ondansetron HCl 4 mg 12/18/23 17:14 12/19/23 15:30 Ondansetron Inj 4 Mg/2 Ml Vial IV PUSH 4 mg Q6H PRN Administration Nausea And Vomiting Prochlorperazine Edisylate 10 mg 12/19/23 13:30 12/19/23 18:25 Prochlorperazine Edisylate 10 Mg/2 Ml Vial IV PUSH 10 mg Q6H PRN Administration Nausea And Vomiting Radiology Results: ITS Impressions Retrograde Pyelogram 12/18/23 14:32 IMPRESSION: 1. Stone in the distal right ureter with right hydronephrosis and proximal hydrou
--- NOTE | 2023-12-20 13:01 | WPDCN ---
Assessment and Plan Assessment and plan (1) Chest pain: Code(s): R07.9 - Chest pain, unspecified Status: Acute Assessment and Plan: 12/20/23: Patient reporting chest pain overnight with associated shortness of breath. Patient states it is intermittent and currently not having pain now unless she takes a deep breath. She was encouraged to ambulate in the halls and be out of the bed for all meals as she has not been up and moving around since her cystoscopy. Her VSS, she is not tachycardic or tachypneic which would be suggestive of PE. Troponin was negative EKG showing normal sinus rhythm Restart aspirin 81 mg daily Will start DVT prophylaxis with Lovenox Order placed for continuous telemetry Will check a chest x-ray We will go ahead check magnesium and another troponin now Will start amlodipine 5 mg to start now as blood pressure is ranging 130s to 150s systolic at rest (2) UTI (urinary tract infection): Code(s): N39.0 - Urinary tract infection, site not specified Status: Acute Assessment and Plan: 12/20/23: UA on 12/16/2023 showed 2+ urine protein, trace ketones, 2+ urine blood, 3+ leukocytes, greater than 100 urine wbc's, rare bacteria, 3-5 urine RBCs. Urine culture showing Proteus mirabilis on final read Continue with oral Levaquin Urology is following CT of the abdomen and pelvis from 12/16/2023 revealed a 5 x 9 mm distal ureteral stone causing moderate to severe obstructive uropathway Patient is postop day 2 from a cystoscopy with right ureteral stent placement White blood cell count 15.6 today. (3) Hydronephrosis due to obstruction of ureter: Code(s): N13.1 - Hydronephrosis with ureteral stricture, not elsewhere classified Status: Acute Assessment and Plan: 12/20/23: CT of the abdomen and pelvis from 12/16/2023 revealed a 5 x 9 mm distal ureteral stone causing moderate to severe obstructive uropathway Patient is postop day 2 from a cystoscopy with right ureteral stent placement Urology is following (4) Right ureteral calculus: Code(s): N20.1 - Calculus of ureter Status: Acute Assessment and Plan: 12/20/23: Urology following Patient will likely require 3-4 weeks with the stents in place before having procedure for the stone (5) History of hyperlipidemia: Code(s): Z86.39 - Personal history of other endocrine, nutritional and metabolic disease Status: Acute Assessment and Plan: 12/20/23: Continue atorvastatin HPI Data of Consult Date/Time: 12/20/23 13:01 Requesting Physician: Robby Linda MD Primary Care Provider: Ha Miller, Consult Narrative Narrative: Elma Solis is a 63 year old female with a significant past medical history of hyperlipidemia and obesity who presented to the hospital for elective cystoscopy, right retrograde, right urethral stent placement on 12/18/2023 with urology services. Patient was found to have an obstructing 9 mm right mid urethral stone and urinary tract infection on CT which was performed on 12/16/2023. She does have a Nur catheter in place. According to Urology she will require stent placement for 3-4 weeks prior to intervention for the stone. Her urine culture was showing Proteus mirabilis on final read and she is currently on Levaquin. Retrograde pyelogram showing stone in the distal right ureter with right hydronephrosis and proximal hydroureter, perforation of the right ureter in the area of the stone with temporary extraluminal positioning of the catheter, right internal urethral stent in expected position at the conclusion of the procedure. Patient was complaining of chest pain overnight however troponins have been negative and her EKG showed normal sinus rhythm with a QTC 401. We were consulted for medical management considering her chest pain from last night. On examination today patient is alert and oriented x3, lying in the bed. She denies an
[2023-12-20] MEDS: MULTIVITAMINS THERAPEUTIC TAB (*BKC) 1 TABLET PO (14:23)
[2023-12-20] MEDS: amLODIPine BESYLATE 5 MG TABLET PO (14:23)
[2023-12-20] MEDS: TAMSULOSIN HCL 0.4 MG CAPSULE PO (14:23)
[2023-12-20 14:46] LABS: Magnesium 1.7 mg/dL (1.6-2.3)
[2023-12-20 14:59] LABS: Troponin I < 0.012 ng/mL (0.000-0.034)
[2023-12-20] MEDS: ATORVASTATIN 20 MG TABLET PO (20:54)
[2023-12-20] MEDS: ONDANSETRON INJ 4 MG/2 ML VIAL IV PUSH (21:00)
[2023-12-21] VITALS (7 sets, daily range): BP systolic 134–146; BP diastolic 60–76; PULSE 71–100; RESP 16; TEMP 36.5–37; O2SAT 93–96
[2023-12-21 05:26] LABS: Basophils Percent Auto 0.2 % (0.2-1.2); Eosinophils Absolute Auto 0.2 K/mm3 (0-0.3); Eosinophils Percent Auto 1.7 % (0-4.4); Hematocrit 31.6 % (37.0-47.0); Hemoglobin 10.2 g/dL (12.0-15.0); Immature Granulocyte Absolute 0.13 K/mm3 (0.00-0.031); Immature Granulocyte Percent A 0.9 % (0-0.5); Lymphocytes Absolute Auto 1.44 K/mm3 (0.9-3.2); Lymphocytes Percent Auto 10.3 % (18.3-44.2); Mean Corpuscular HGB Conc 32.3 g/dl (32-36); Mean Corpuscular Hemoglobin 29.5 pg (26-34); Mean Corpuscular Volume 91.3 fl (80-100); Mean Platelet Volume 8.6 fl (7.4-10.4); Monocytes Percent Auto 7.4 % (2.6-8.5); Neutrophils Absolute Auto 11.1 K/mm3 (1.3-6.7); Neutrophils Percent Auto 79.5 % (45.5-73.1); Platelet Count Result 302 k/mm3 (150-375); Red Blood Count 3.46 M/mm3 (4.2-5.4); Red Cell Distribution Width 12.6 % (11.5-14.5)
[2023-12-21 05:47] LABS: Alanine Aminotransferase 15 U/L (6-35); Alkaline Phosphatase 110 U/L (38-126); Anion Gap 3 mmol/L (4-12); Aspartate Amino Transferase 20 U/L (14-36); Bilirubin,Total 0.4 mg/dL (0.2-1.3); Blood Urea Nitrogen 9 mg/dL (7-17); Calcium 8.3 mg/dL (8.4-10.2); Carbon Dioxide 27 mmol/L (22-30); Chloride 105 mmol/L (98-107); Estimated CRCL calculation 73 ml/min; Estimated Glomerular Filt Rate > 60; Glucose 98 mg/dL (65-110); Potassium 3.5 mmol/L (3.4-5.0); Sodium 135 mmol/L (137-145)
--- NOTE | 2023-12-21 07:25 | P.PNIM_ITS ---
Progress Note: A&P Assessment and Plan (1) Chest pain: Code(s): R07.9 - Chest pain, unspecified Status: Acute Assessment and Plan: 12/20/23: * Patient reporting chest pain overnight with associated shortness of breath. Patient states it is intermittent and currently not having pain now unless she takes a deep breath. She was encouraged to ambulate in the halls and be out of the bed for all meals as she has not been up and moving around since her cystoscopy. Her VSS, she is not tachycardic or tachypneic which would be suggestive of PE. * Troponin was negative * EKG showing normal sinus rhythm * Restart aspirin 81 mg daily * Will start DVT prophylaxis with Lovenox * Order placed for continuous telemetry * Will check a chest x-ray * We will go ahead check magnesium and another troponin now * Will start amlodipine 5 mg to start now as blood pressure is ranging 130s to 150s systolic at rest 12/21/23: * Chest x-ray showing retrocardiac opacification representing atelectasis * White blood cell count down to 14.0 today * Troponin x2 negative * Will start incentive spirometry as well as increase her activity * Procalcitonin 0.2 * Patient started on a 5 day course of Azithromycin for possible pneumonia on CXR (2) UTI (urinary tract infection): Code(s): N39.0 - Urinary tract infection, site not specified Status: Acute Assessment and Plan: 12/20/23: * UA on 12/16/2023 showed 2+ urine protein, trace ketones, 2+ urine blood, 3+ leukocytes, greater than 100 urine wbc's, rare bacteria, 3-5 urine RBCs. * Urine culture showing Proteus mirabilis on final read * Continue with oral Levaquin * Urology is following * CT of the abdomen and pelvis from 12/16/2023 revealed a 5 x 9 mm distal ureteral stone causing moderate to severe obstructive uropathway * Patient is postop day 2 from a cystoscopy with right ureteral stent placement * White blood cell count 15.6 today. 12/21/23: * Currently on Levaquin * Urology following * WBC down to 14.0 (3) Hydronephrosis due to obstruction of ureter: Code(s): N13.1 - Hydronephrosis with ureteral stricture, not elsewhere classified Status: Acute Assessment and Plan: 12/20/23: * CT of the abdomen and pelvis from 12/16/2023 revealed a 5 x 9 mm distal ureteral stone causing moderate to severe obstructive uropathway * Patient is postop day 2 from a cystoscopy with right ureteral stent placement * Urology is following 12/21/23: * Patient is postop day 3 from cystoscopy and right ureteral stent placement * Urology following (4) Right ureteral calculus: Code(s): N20.1 - Calculus of ureter Status: Acute Assessment and Plan: 12/20/23: * Urology following * Patient will likely require 3-4 weeks with the stents in place before having procedure for the stone 12/21/23: * No change, Urology following (5) History of hyperlipidemia: Code(s): Z86.39 - Personal history of other endocrine, nutritional and metabolic disease Status: Acute Assessment and Plan: 12/20/23: * Continue atorvastatin 12/21/23: * No change to current treatment plan Time Spent With Patient Time with patient: 25 - 35 minutes Subjective Date/time seen: 12/21/23 07:25 Interval history: 12/20/23: Elma Solis is a 63 year old female with a significant past medical history of hyperlipidemia and obesity who presented to the hospital for elective cystoscopy, right retrograde, right urethral stent placement on 12/18/2023 with urology services.? Patient was found to have an o
--- NOTE | 2023-12-21 07:25 | PM.IMPN ---
Progress Note: A&P Assessment and Plan (1) Chest pain: Code(s): R07.9 - Chest pain, unspecified Status: Acute Assessment and Plan: 12/20/23: Patient reporting chest pain overnight with associated shortness of breath. Patient states it is intermittent and currently not having pain now unless she takes a deep breath. She was encouraged to ambulate in the halls and be out of the bed for all meals as she has not been up and moving around since her cystoscopy. Her VSS, she is not tachycardic or tachypneic which would be suggestive of PE. Troponin was negative EKG showing normal sinus rhythm Restart aspirin 81 mg daily Will start DVT prophylaxis with Lovenox Order placed for continuous telemetry Will check a chest x-ray We will go ahead check magnesium and another troponin now Will start amlodipine 5 mg to start now as blood pressure is ranging 130s to 150s systolic at rest 12/21/23: Chest x-ray showing retrocardiac opacification representing atelectasis White blood cell count down to 14.0 today Troponin x2 negative Will start incentive spirometry as well as increase her activity Procalcitonin 0.2 Patient started on a 5 day course of Azithromycin for possible pneumonia on CXR (2) UTI (urinary tract infection): Code(s): N39.0 - Urinary tract infection, site not specified Status: Acute Assessment and Plan: 12/20/23: UA on 12/16/2023 showed 2+ urine protein, trace ketones, 2+ urine blood, 3+ leukocytes, greater than 100 urine wbc's, rare bacteria, 3-5 urine RBCs. Urine culture showing Proteus mirabilis on final read Continue with oral Levaquin Urology is following CT of the abdomen and pelvis from 12/16/2023 revealed a 5 x 9 mm distal ureteral stone causing moderate to severe obstructive uropathway Patient is postop day 2 from a cystoscopy with right ureteral stent placement White blood cell count 15.6 today. 12/21/23: Currently on Levaquin Urology following WBC down to 14.0 (3) Hydronephrosis due to obstruction of ureter: Code(s): N13.1 - Hydronephrosis with ureteral stricture, not elsewhere classified Status: Acute Assessment and Plan: 12/20/23: CT of the abdomen and pelvis from 12/16/2023 revealed a 5 x 9 mm distal ureteral stone causing moderate to severe obstructive uropathway Patient is postop day 2 from a cystoscopy with right ureteral stent placement Urology is following 12/21/23: Patient is postop day 3 from cystoscopy and right ureteral stent placement Urology following (4) Right ureteral calculus: Code(s): N20.1 - Calculus of ureter Status: Acute Assessment and Plan: 12/20/23: Urology following Patient will likely require 3-4 weeks with the stents in place before having procedure for the stone 12/21/23: No change, Urology following (5) History of hyperlipidemia: Code(s): Z86.39 - Personal history of other endocrine, nutritional and metabolic disease Status: Acute Assessment and Plan: 12/20/23: Continue atorvastatin 12/21/23: No change to current treatment plan Time Spent With Patient Time with patient: 25 - 35 minutes Subjective Date/time seen: 12/21/23 07:25 Interval history: 12/20/23: Elma Solis is a 63 year old female with a significant past medical history of hyperlipidemia and obesity who presented to the hospital for elective cystoscopy, right retrograde, right urethral stent placement on 12/18/2023 with urology services.? Patient was found to have an obstructing 9 mm right mid urethral stone and urinary tract infection on CT which was performed on 12/16/2023.? She does have a Nur catheter in place.? According to Urology she will require stent placement for 3-4 weeks prior to intervention for the stone.? Her urine culture was showing Proteus mirabilis on final read and she is currently on Levaquin.? Retrograde pyelogram showing stone in the distal right ureter with right hydronephrosis and
[2023-12-21 08:12] LABS: Procalcitonin 0.1 ng/mL
[2023-12-21] MEDS: TAMSULOSIN HCL 0.4 MG CAPSULE PO (09:20)
[2023-12-21] MEDS: AZITHROMYCIN 250 MG TABLET 500 MG PO (09:21)
[2023-12-21] MEDS: MULTIVITAMINS THERAPEUTIC TAB (*BKC) 1 TABLET PO (09:21)
[2023-12-21] MEDS: amLODIPine BESYLATE 5 MG TABLET PO (09:21)
[2023-12-21] MEDS: ENOXAPARIN 40 MG/0.4 ML SYRINGE SUB-Q (09:21)
[2023-12-21] MEDS: ASPIRIN 81 MG CHEWABLE TABLET PO (09:21)
--- NOTE | 2023-12-21 09:23 | WPDUROPN2 ---
Progress Note: A&P Assessment and Plan (1) Hydronephrosis due to obstruction of ureter: Code(s): N13.1 - Hydronephrosis with ureteral stricture, not elsewhere classified Status: Acute Assessment and Plan: Status post stent placement. Will plan definitive treatment with ureteroscopy in approximately 1 month (2) Right ureteral calculus: Code(s): N20.1 - Calculus of ureter Status: Acute Assessment and Plan: See above. Need time for ureter to heal and have her get over recent infection (3) UTI (urinary tract infection): Code(s): N39.0 - Urinary tract infection, site not specified Status: Acute Assessment and Plan: Repeat urine culture in the office was negative. Will finish out 5 days of Levaquin for her culture from ER prior to admission Subjective Subjective Date/Time Seen: 12/21/23 09:23 Post Op day: 3 (Right ureteral stent placement) Principal diagnosis: Right ureteral calculus with UTI Interval history: Elma is feeling much better today and anxious to go home. Her chest x-ray did reveal some atelectasis versus pneumonia and hospitalist is placing her on appropriate antibiotics. Her white count is improving. She is ambulating and tolerating a diet Review of Systems Review of Systems: All systems reviewed & are unremarkable except as noted in HPI and below Exam Const: General: cooperative and comfortable Resp: Effort & Inspection: normal respiratory effort Cardio: Rate: regular rate Rhythm: regular rhythm Objective Data Vital Signs Vital Signs: Vital Signs - 24 hr 12/20/23 10:00 12/20/23 14:00 12/20/23 16:00 Temperature 37.1 C 36.8 C Pulse Rate 75 70 82 Respiratory Rate 18 17 Blood Pressure 142/64 H 138/64 Pulse Oximetry 95 96 Oxygen Delivery 12/20/23 18:00 12/20/23 19:55 12/20/23 20:00 Temperature 36.6 C 36.6 C Pulse Rate 72 76 76 Respiratory Rate 18 16 16 Blood Pressure 136/74 141/75 H Pulse Oximetry 96 94 94 Oxygen Delivery Room Air 12/21/23 01:17 12/20/23 20:00 12/21/23 00:00 Temperature 36.6 C Pulse Rate 100 74 72 Respiratory Rate 16 Blood Pressure 146/71 H Pulse Oximetry 93 Oxygen Delivery 12/21/23 04:00 12/21/23 05:35 12/21/23 09:13 Temperature 36.5 C 37.0 C Pulse Rate 71 80 86 Respiratory Rate 16 16 Blood Pressure 139/76 134/60 Pulse Oximetry 94 96 Oxygen Delivery Intake/Output Intake/Output: Intake & Output 12/18/23 12/19/23 12/20/23 12/21/23 23:59 23:59 23:59 23:59 Intake Total 1750 3220.0 3064 Output Total 40 2350 600 Balance 1710 870.0 2464 Meds/Results Medications: Active Medications Generic Name Dose Route Start Last Admin Trade Name Freq PRN Reason Stop Dose Admin Hydrocodone Bitart/Acetaminophen 1 tab 12/19/23 05:00 12/20/23 14:24 Hydrocodone/Acetaminophen (*Crx) 5-325 Mg Tablet PO 1 tab Q4H PRN Administration Pain Rated 1-3 Hydrocodone Bitart/Acetaminophen 2 tab 12/19/23 05:00 Hydrocodone/Acetaminophen (*Crx) 5-325 Mg Tablet PO Q4H PRN Pain Rated 4-6 Amlodipine Besylate 5 mg 12/20/23 14:00 12/20/23 14:23 Amlodipine Besylate 5 Mg Tablet PO 5 mg QAM PRINCESS Administration Aspirin 81 mg 12/21/23 08:00 Aspirin 81 Mg Chewable Tablet PO DAILY@0800 PRINCESS Atorvastatin Calcium 20 mg 12/18/23 21:00 12/20/23 20:54 Atorvastatin 20 Mg Tablet PO 20 mg HS PRINCESS Administration Azithromycin 500 mg 12/21/23 09:00 Azithromycin 250 Mg Tablet PO 12/22/23 09:00 DAILY PRINCESS Enoxaparin Sodium 40 mg 12/21/23 09:00 Enoxaparin 40 Mg/0.4 Ml Syringe SUB-Q DAILY PRINCESS Hydromorphone HCl 0.5 mg 12/18/23 15:46 12/19/23 00:06 Hydromorphone Hcl Inj (*Crx) 1 Mg/Ml Syr IV PUSH 0.5 mg Q4H PRN Administration Pain Rated 7-10 Levofloxacin/Dextrose 500 mg in 100 mls @ 100 mls/hr 12/19/23 09:00 12/20/23 09:03 Levaquin 500 Mg/D5w 100 Ml IVPB 100 mls/hr Q24H PRINCESS Administration
--- NOTE | 2023-12-21 09:27 | PM.DS ---
DS: Admitting Diagnosis Discharge Date 12/21/2023 Admitting Diagnosis Obstructing stone with UTI DS: Discharge Diagnosis Discharge Diagnosis (1) Right ureteral calculus: Code(s): N20.1 - Calculus of ureter Status: Acute Assessment and Plan: Status post stent placement. Will address stone in 1 months time. (2) Hydronephrosis due to obstruction of ureter: Code(s): N13.1 - Hydronephrosis with ureteral stricture, not elsewhere classified Status: Acute Assessment and Plan: Secondary to above (3) UTI (urinary tract infection): Qualifiers: Urinary tract infection type: site unspecified Code(s): N39.0 - Urinary tract infection, site not specified Status: Acute Assessment and Plan: Treat with Levaquin 500 mg p.o. for additional 5 days DS: Summary Hospital Course Hospital Course: Milena underwent cystoscopy with right ureteral stent placement. During the procedure the obstructing stone was not revised the wire to pass in the wire perforated the ureter. I was able to manipulate the stent past the stone. She was admitted for IV antibiotics and further management. Patient complained of some chest discomfort and hospitalist was consulted. Her troponins and EKG were negative. Chest x-ray revealed some atelectasis versus pneumonia and she is started on antibiotics for that. At the time of discharge she is comfortable ambulating tolerating a diet. She is anxious to get home. Status at Discharge Cognitive/behavioral status at discharge: Normal Time Spent with Patient Time attestation: Total time spent providing and/or coordinating discharge services: DS: Data Data Completed and Pending Labs on day of discharge: Labs from last 24 hours 12/21/23 12/21/23 12/20/23 05:07 05:04 14:18 WBC 14.0 H RBC 3.46 L Hgb 10.2 L Hct 31.6 L MCV 91.3 MCH 29.5 MCHC 32.3 RDW 12.6 Plt Count 302 MPV 8.6 Immature Gran % (Auto) 0.9 H Neut % (Auto) 79.5 H Lymph % (Auto) 10.3 L [place] % (Auto) 7.4 Eos % (Auto) 1.7 Baso % (Auto) 0.2 Lymph # (Auto) 1.44 [place] # (Auto) 1.0 H Eos # (Auto) 0.2 Baso # (Auto) 0.0 Abs Immat Gran (auto) 0.13 H Absolute Neuts (auto) 11.1 H Absolute Nucleated RBC 0.000 Nucleated RBC % 0.0 Sodium 135 L Potassium 3.5 Chloride 105 Carbon Dioxide 27 Anion Gap 3 L BUN 9 D Creatinine 0.70 Estim Creat Clear Calc 73 Estimated GFR > 60 Glucose 98 Calcium 8.3 L Magnesium Cancelled Total Bilirubin 0.4 AST 20 ALT 15 Alkaline Phosphatase 110 Troponin I < 0.012 Total Protein 6.0 L Albumin 3.0 L Procalcitonin 0.1 12/20/23 14:18 WBC RBC Hgb Hct MCV MCH MCHC RDW Plt Count MPV Immature Gran % (Auto) Neut % (Auto) Lymph % (Auto) [place] % (Auto) Eos % (Auto) Baso % (Auto) Lymph # (Auto) [place] # (Auto) Eos # (Auto) Baso # (Auto) Abs Immat Gran (auto) Absolute Neuts (auto) Absolute Nucleated RBC Nucleated RBC % Sodium Potassium Chloride Carbon Dioxide Anion Gap BUN Creatinine Estim Creat Clear Calc Estimated GFR Glucose Calcium Magnesium 1.7 Total Bilirubin AST ALT Alkaline Phosphatase Troponin I Total Protein Albumin Procalcitonin Discharge Plan Discharge Consulting providers: Betina Garcia Discharging Clinician: Robby Linda Patient Disposition: Home, Self-Care Activity: as tolerated Diet: as tolerated and regular Discharge Instructions: You were found to have Hypertension/ elevated blood pressures. I started you on amlodipine 5 mg daily. Continue to take this medication and follow up with your primary care doctor in 1 week for a recheck of your blood pressure. If you have a blood pressure cuff at home, document daily blood pressures and take with you to your next appointment. Finish all of your antibiotics as direct
[2023-12-21] MEDS: levoFLOXacin 500 MG TABLET PO (12:36)
== END 2023-12-21 14:15 | disposition home or self-care (01) ==
LOC: ANHSURGERY 14:54 → ANH2MED 14:54
PROVIDERS: Nurse Practitioner Acute Care; Admitting Provider Urology; PCP Family Medicine; Visit Provider Urology
PROC: (CPT 52352; principal; 2023-12-18 14:00)
DX: N13.2 Hydronephrosis with renal and ureteral calculous obstruction (principal); N13.1 Hydronephrosis with ureteral stricture, not elsewhere classified; N39.0 Urinary tract infection, site not specified; N36.5 Urethral false passage; R07.9 Chest pain, unspecified; R06.02 Shortness of breath; E78.5 Hyperlipidemia, unspecified; Z79.82 Long term (current) use of aspirin; E66.9 Obesity, unspecified; Z68.31 Body mass index [BMI] 31.0-31.9, adult
CPT/HCPCS: 52332; 36415; 71045; 74420; 80048; 80053; 83735; 84145; 84484; 85025; 93005; A9270; C1758; C1769; C1894; C2617; G0378; J0690; J0780; J1100; J1170; J1650; J1885; J1956; J2250; J2405; J2704; J3010; J7120; J7121; Q9966

== ENCOUNTER 2024-01-28 07:46 | Outpatient (CLI) | payer BC, SELFPAY | END 2024-01-28 07:47 | disposition home or self-care (01) | PROVIDERS: PCP Family Medicine; Visit Provider Urology | DX: N20.1 Calculus of ureter (principal); Z01.818 Encounter for other preprocedural examination | CPT/HCPCS: 87086; 87088 ==

== ENCOUNTER 2024-02-04 00:38 | Day surgery (SDC) | payer BC, SELFPAY ==
--- NOTE | 2024-01-22 11:22 | PC.NURSE ---
PRE-OP INSTRUCTIONS PLEASE READ CAREFULLY Report to the Outpatient Waiting Room, entrance under the green pavilion located off [facility], at time _0800_ on date _02/04/24_. Planned Procedure Time: _1000_. Time changes happen often and if your time is changed the preop area will call you the afternoon before. - You and your visitor will be asked to self-screen and do not enter if you have any COVID symptoms. - A mask is optional within the hospital at this time. Patients may have clear liquids (water, carbonated beverages, clear teas, apple juice) until 3 hours prior to surgery (0700 AM) with a maximum of 20 ounces. - No food from midnight until time of surgery Take the following medications with a SIP of water the morning of surgery: _NONE_ DO NOT STOP ANY OF YOUR OTHER PRESCRIPTION MEDICATIONS PRIOR TO SURGERY ?EXCEPT THE FOLLOWING Medications to discontinue - _ASPIRIN INSTRUCTED BY DR. HAMILTON_ Medications to discontinue per ANESTHESIA - _VITAMINS/SUPPLEMENTS 3 DAYS PRIOR TO SURGERY, Date to take last dose 01/31/24_ Please no make-up, nail georgian, hairspray, perfume, deodorant, or body powder the day of surgery. No jewelry (including any body piercings) or valuables the day of surgery, leave them at home. Please take a shower or bath the night before, or the morning of, surgery with an antibacterial soap. Wear comfortable, loose fitting clothing. - Jewelry must be removed prior to entering the operating room. Rings and piercings that are not removed may be cut off. - The hospital will not accept responsibility for valuables. - Please leave all valuables, including medications, at home the day of surgery. If you are going home after surgery, a licensed regional flatbed truck driver must drive you home. - NO public transportation without another adult if you receive anesthesia. - We recommend that an adult stay with you for 24 hours following discharge. - We also recommend that you do not drive, make important decision, drink alcoholic beverages, or take any drugs that were not prescribed by your health care provider for at least 24 hours after your discharge time. For Pediatric surgeries, we recommend two adults accompany the child home. If you or anyone in your household have experienced Covid symptoms in the past week, please notify your surgeon or the nurse liaison at the phone number below for possible testing. Telephone instructions given to _PATIENT_and asked if any additional questions and then verbalized understanding. Patient advised to call surgeon office or pre surgery nurse liaison [phone] if any additional questions.
[2024-01-22 11:25] VITALS: BMI 29.5
[2024-02-04] VITALS (10 sets, daily range): BP systolic 138–167; BP diastolic 66–88; PULSE 55–71; RESP 12–16; TEMP 36.2–36.6; O2SAT 96–100
--- NOTE | ~2024-02-04 | XR_ITS ---
EXAMINATION: XR retrograde pyelo w/stent RT DATE: 02/04/2024 10:34 INDICATION: Right retrograde pyelogram and stent placement. TECHNIQUE: 5 fluoroscopic images of the abdomen and pelvis were obtained during procedure performed barbara Linda. Radiologist was not present for the imaging or procedure. The amount of fluoroscopy t beatris used during this procedure was 0.3 minutes. COMPARISON: CT dated 12/16/2023 and prior retrograde pyelogram dated 12/18/2023 FINDINGS: Cannulation of the right ureter and retrograde contrast opacification hamstring mild right hydronephr osis. No evident contrast extravasation. No evident filling defects or mucosal irregularities. Subseq uent images demonstrate placement of a right intraureteral stent with loops formed in the left renal pelvis and with drainage of the majority the injected contrast. IMPRESSION: 1. Placement of a right internal ureteral stent in expected position. No evident extraluminal contras t extravasation. See procedure note for further detail. Reviewed, dictated and finalized at location A. IMPRESSION: 1. Placement of a right internal ureteral stent in expected position. No eviden t extraluminal contrast extravasation. See procedure note for further detail.
--- NOTE | 2024-02-04 08:47 | PM.IMHP ---
H&P: HPI History of Present Illness Date/Time: 02/04/24 08:47 Chief Complaint: 9 x 5 mm right ureteral calculus Narrative: 63-year-old female who had a right ureteral stent placed back in 01/09 for a 5 x 9 mm right mid ureteral stone and UTI. She is now here for definitive treatment with cysto retrograde ureteroscopy stone extraction possible laser. The stone was poorly visualized on KUB Review of Systems Review of Systems: All systems reviewed & are unremarkable except as noted in HPI and below [facility] Past Medical History Medical History History of hyperlipidemia Obesity Surgical History Surgical History History of appendectomy Social History Social History Smoking status: Never smoker Second hand tobacco smoke exposure: No Alcohol intake: current Alcohol use details: RARELY - STATES MAYBE 1/YR Substance use: never Substance use type: does not use Do You Feel Safe in your Home?: Yes Lack of Transportation: YES Lack of Food: Never True Current Housing: I Have Housing Concerned About Future Housing: No Difficulty Paying Gas/Electric Bills: No Difficulty Paying for Meds: No Currently Unemployed: No Education: Don't Know Difficulty w/ Childcare or Family Care: No Living arrangements: with family Spiritual care concerns: No Meds Home Medications and Allergies Home Medications Medication Instructions Recorded Confirmed Type aspirin 81 mg capsule 81 mg PO DAILY 12/18/23 01/22/24 History atorvastatin 20 mg tablet 20 mg PO HS 12/18/23 01/22/24 History multivitamin 1 tablet PO DAILY 12/18/23 01/22/24 History omega-3 fatty acids 1,000 mg PO DAILY 12/18/23 01/22/24 History Allergies Allergy/AdvReac Type Severity Reaction Status Date / Time Penicillins Allergy Intermediate Swelling Verified 01/22/24 11:17 Sulfa (Sulfonamide Allergy Intermediate Swelling Verified 01/22/24 11:17 Antibiotics) Exam Const: General: cooperative and comfortable Resp: Effort & Inspection: normal respiratory effort Cardio: Rate: regular rate Rhythm: regular rhythm Assessment and Plan Assessment and plan (1) Right ureteral calculus: Code(s): N20.1 - Calculus of ureter Status: Acute Assessment and Plan: Cystoscopy, right retrograde pyelogram, right ureteroscopy with stone extraction, possible laser, stent exchange
--- NOTE | 2024-02-04 08:49 | WPDHPUPDATE1 ---
History and Physical Update Update Date/Time: 02/04/24 08:49 History and Physical has been reviewed, including an updated exam of the patient. There are NO changes in the patient's condition. Risks, benefits, and alternatives have been discussed and questions answered. Patient agrees to proceed with procedure.
[2024-02-04] MEDS: LACTATED RINGERS 1,000 ML 30 ML IV CONT (09:00)
--- NOTE | 2024-02-04 09:42 | P.PNAN_ITS ---
Anes - Initial Pre Proc Eval Procedure: Operation Date: 02/04/24 10:00 Proposed Procedures p Cystoscopy, Right Ureteroscopy, Possible Right Retrograde Pyelogram, Possible Right Stone Extraction, Possible Right Stent Removal/Replacement, Possible Holmium Laser Procedure, Possible Nur Catheter Removal/Exchange - Robby Linda MD Date/Time: 02/04/24 09:42 Surgeon: Robby Linda MD Pre Op Diagnosis: right kidney stones Patient Data Age: 63 Gender: F Height: 1.63 m Weight: 78.18 kg Allergies Allergy/AdvReac Type Severity Reaction Status Date / Time Penicillins Allergy Intermediate Swelling Verified 01/22/24 11:17 Sulfa (Sulfonamide Allergy Intermediate Swelling Verified 01/22/24 11:17 Antibiotics) Home Medications Medication Instructions Recorded Confirmed Type aspirin 81 mg capsule 81 mg PO DAILY 12/18/23 01/22/24 History atorvastatin 20 mg tablet 20 mg PO HS 12/18/23 01/22/24 History multivitamin 1 tablet PO DAILY 12/18/23 01/22/24 History omega-3 fatty acids 1,000 mg PO DAILY 12/18/23 01/22/24 History Patient hx anesthesia problems: none Family hx anesthesia problems: none Results Review: All pre-operative results and documents have been reviewed as part of the pre- operative evaluation. [facility] Past Medical History Medical History History of hyperlipidemia Obesity Surgical History Surgical History History of appendectomy Social History Social History Smoking status: Never smoker Second hand tobacco smoke exposure: No Alcohol intake: current Alcohol use details: RARELY - STATES MAYBE 1/YR Substance use: never Substance use type: does not use Do You Feel Safe in your Home?: Yes Lack of Transportation: YES Lack of Food: Never True Current Housing: I Have Housing Concerned About Future Housing: No Difficulty Paying Gas/Electric Bills: No Difficulty Paying for Meds: No Currently Unemployed: No Education: Don't Know Difficulty w/ Childcare or Family Care: No Living arrangements: with family Spiritual care concerns: No Anes - Eval Final PreProcedure Day of Procedure 02/04/24 09:42 Patient weight: overweight Heart: regular rate and rhythm Lungs: clear to auscultation Airway: Mallampati scale class II Neurological: alert and oriented Last oral intake: >/= 8 hours ASA classification: II Emergent: no Anesthetic plan: proceed Anesthesia type and monitoring: general LMA and standard monitoring Results Review: All pre-operative results and documents have been reviewed as part of the pre- operative evaluation. Informed Consent: The patient's anesthetic plan and its attendant risks and benefits were discussed with the patient/family/POA. Questions were solicited and answers provided to the satisfaction of the patient/family/POA.
[2024-02-04] MEDS: ceFAZolin 2 GM/D5W 50 ML 2 GM/50 ML BAG IVPB (10:02)
[2024-02-04] MEDS: LIDOCAINE HCL 2% GEL UROJET 10 ML PKG MUCOUS MEM (10:15)
--- NOTE | 2024-02-04 10:36 | P.OP_ITS ---
Procedure Note - Detailed Date of Procedure 02/04/24 Pre-op Diagnosis right ureteral calculus 9 x 5 mm Post-op Diagnosis Same Procedure Performed Cystoscopy, right retrograde pyelogram, right ureteroscopy with holmium laser, stone extraction, right ureteral stent exchange 4.8 Anguillan contour Surgeon Robby Linda MD Anesthesia General Description of Procedure Patient is taken to the operative suite correctly identified. Once anesthesia was obtained she was placed in dorsal lithotomy position and prepped and draped usual sterile fashion. Nineteen Anguillan scope inserted the bladder. The prior stent on the right was grasped brought out the meatus. Sensor wire was passed through the stent. Rigid ureteral scope was then inserted. The stone was visualized impacted in the mid ureter. Using a 200 micron fiber we lasered the stone into multiple pieces. The largest fragments were sent for analysis. Reinspection revealed no residual stones. Pyelogram was then performed confirm placement of the stent. 4.8 Anguillan contour stent was then placed with the proximal end coiled in the renal pelvis and the distal end in the bladder. Bladder was drained. 2% viscous lidocaine was inserted into the urethra patient is taken recovery stable condition. This completes dictation. Please send a copy of op note to my office. Estimated Blood Loss 0 Drains Yes Packing No Pathology Yes Complications No immediate complications Condition Stable Disposition PACU
[2024-02-04] MEDS: ONDANSETRON INJ 4 MG/2 ML VIAL IV PUSH (10:58)
== END 2024-02-04 12:10 | disposition home or self-care (01) ==
PROVIDERS: PCP Family Medicine; Visit Provider Urology
PROC: (CPT 52352; principal; 2024-02-04 10:00)
DX: N20.1 Calculus of ureter (principal); E78.5 Hyperlipidemia, unspecified; E66.9 Obesity, unspecified; Z68.30 Body mass index [BMI] 30.0-30.9, adult; Z79.82 Long term (current) use of aspirin
CPT/HCPCS: 52356; 74420; 82365; 88300; C1758; C1769; C2617; J0690; J1100; J2250; J2405; J2704; J3010; J7120; Q9966

== ENCOUNTER 2024-03-17 09:41 | Outpatient (CLI) | payer BC, SELFPAY ==
--- NOTE | ~2024-03-17 | XR_ITS ---
XR abdomen/kub 1V Ordering provider: Robby Linda MD History: . RT URETERAL STONE . Comparison: December 16, 2023 FINDINGS: BOWEL: Nonobstructive bowel gas pattern. ORGANOMEGALY: None. SIGNIFICANT PATHOLOGIC CALCIFICATIONS: None. OTHER: Degenerative changes of the spine. Levoscoliosis. No free air is seen under the diaphragm. IMPRESSION: NO ACUTE ABDOMINAL FINDINGS. Reviewed, dictated and finalized at location A.
== END 2024-03-17 09:42 | disposition home or self-care (01) ==
LOC: ANHIMG 09:43
PROVIDERS: PCP Family Medicine; Visit Provider Urology
DX: N20.1 Calculus of ureter (principal)
CPT/HCPCS: 74018